=== PATIENT | male | born 1995 | race Caucasian/White ===

== ENCOUNTER 2016-08-09 08:36 | Emergency (ER) | payer SELFPAY ==
[~2016-08-09] VITALS: Ht 165.1 cm; Wt 81.6 kg
[~2016-08-09 08:36] MED LIST: HYDR-971 PO
[2016-08-09 08:49] VITALS: BP 114/66
--- NOTE | 2016-08-09 08:59 | PHYS DOC ---
General Chief Complaint: EYE PROBLEMS Stated Complaint: MULTIPLE COMPLAINTS Time Seen by MD: 08:37 Source: patient Exam Limitations: no limitations Problems: History of Present Illness Initial Comments Patient is a 20-year-old male with history of asthma who comes in the ED complaining of cough right ear pain pink eye. Patient states he has history of asthma he's had worsening of a nighttime cough for the past 2 weeks or so. He says the past few days this has been improving, his symptoms worsen with worsening of allergy symptoms but they to have been getting better the past few days. He uses an albuterol inhaler as needed and states he hasn't been using it much. He states for the past several days he has had scratchy sore throat described as mild to moderate, he's been eating and drinking well he feels the throat irritation is due to postnasal drip. He's had no fever chills sweats or myalgias, and for the past 2-3 days has had left eye redness and itching burning and greenish yellow discharge. Left eye is matted shut in the morning and today his right eye is starting itching and burning as well. He denies vision changes he does not work contact lenses he has no eye pain or foreign body sensation. He denies headache neck stiffness rash nausea vomiting diarrhea or other complaints. The patient continues to smoke cigarettes Timing/Duration: gradual, other Severity: moderate Location: eye (L), ear (R), mouth Prearrival Treatment: over the counter meds, prescription meds Modifying Factors: improves with other Associated Symptoms: cough, nasal congestion/drainage, sore throat, other Allergies: Coded Allergies: cephalexin (Verified Allergy, Intermediate, Rash, 08/09/16) Tolerates amoxicillin clindamycin (Verified Allergy, Unknown, 08/09/16) Past Medical History Medical History: allergies, asthma Surgical History: noncontributory Social History Smoker: cigarettes Alcohol: none Drugs: none Constitutional: denies chills, denies diaphoresis, denies fever, malaise Eyes: see HPI Ears: see HPI, denies dizziness, denies tinnitus, denies bloody discharge, denies clear discharge Nose: congestion, denies epistaxis, denies pain, denies bloody discharge, clear discharge Mouth: denies clots, denies loose teeth, denies pain Throat: pain, denies swelling, denies neck stiffness, denies hoarse, denies aphonia, painful swallowing, denies difficulty with fluids, denies previous injury Respiratory: see HPI Cardiovascular: denies chest pain, denies palpitations Gastrointestinal: denies diarrhea, denies nausea, denies vomiting Musculoskeletal: denies back pain, denies joint swelling, denies neck pain Neurological: denies headache, denies numbness, denies paresthesia Physical Exam General Appearance: WD/WN, no apparent distress Eyes: right eye normal inspection, left eye other (conjunctival injection, yellow disch), bilateral eye PERRL, bilateral eye EOMI Ears: right ear erythema, left ear TM normal, bilateral ear auricle normal, bilateral ear canal normal Nose: normal inspection Mouth/Throat: other (tonsils 2+ the right is erythematous with some exudate airway is patent) Neck: supple, trachea midline Cardiovascular/Respiratory: normal peripheral pulses, normal breath sounds, no respiratory distress Neurologic/Psychiatric: research scholar II-XII nml as tested, no motor/sensory deficits, alert, normal mood/affect, oriented x 3 Skin: normal color, warm/dry Departure Time of Disposition: 08:55 Disposition: 01 HOME, SELF-CARE Diagnosis: R otitis media, conjunctivitis, tobaccoism, asthma Condition: GOOD Patient Instructions: Bacterial Conjunctivitis, [id number], Otitis Media, Adult, [id number], Smoking Cessation, Tips For Success Additional Instructions: Stop smoking see medical assistance if necessary. Use your home albuterol inhaler: 2 puffs every 4 hours and as needed [id number] Tylenol, ibuprofen, Benadryl, and or analgesic throat sprays as needed. Prescription: Polytrim ophthalmic solution, amoxicillin Follow up with her doctor in 2-3 weeks for recheck. Return to the ED with new or changing symptoms CINDY WARE DO Aug 09, 2016 08:59
== END 2016-08-09 09:07 | disposition home or self-care (01) ==
LOC: ER 08:36
DX: H66.91 Otitis media, unspecified, right ear (principal); H10.9 Unspecified conjunctivitis; J45.909 Unspecified asthma, uncomplicated; F17.210 Nicotine dependence, cigarettes, uncomplicated; Z88.1 Allergy status to other antibiotic agents
CPT/HCPCS: 99283

== ENCOUNTER 2020-01-28 10:33 | Emergency (ER) | payer SELFPAY ==
[~2020-01-28] VITALS: Ht 167.6 cm; Wt 77.4 kg
[~2020-01-28 10:33] MED LIST changes: +HYDR-3165 PO; -HYDR-971 PO
[2020-01-28 10:43] VITALS: BP 114/72
[2020-01-28] MEDS ORDERED: LIDOCAINE 2% VISCOUS 15 ML SOLUTION. TOP ONE (11:00)
[2020-01-28] MEDS ORDERED: LIDOCAINE 2% VISCOUS 15 ML SOLUTION. SWSW ONE (11:00)
--- NOTE | 2020-01-28 11:15 | PHYS DOC ---
Past History Past Medical History: Asthma Past Surgical History: Other Additional Past Surgical Histo: CIRCUMCISION Smoking: Cigarettes Alcohol Use: Occasionally Drug Use: Marijuana General Adult EDM: Chief Complaint: EARACHE/EAR PAIN HPI: HPI: Patient is a 24-year-old male who woke up this morning with left ear pain. Patient has a little bit of dizziness associated with this. Patient feels like there may be a bug in his ear as he hears a buzzing sound. Patient denies any other specific traumas. Patient has not been vomiting or had any recent illnesses. Review of Systems: Review of Systems: Constitutional: Denies fever or chills Eyes: Denies change in visual acuity HENT: Denies nasal congestion or sore throat patient has left ear pain Respiratory: Denies cough or shortness of breath Cardiovascular: Denies chest pain or edema GI: Denies abdominal pain, nausea, vomiting, bloody stools or diarrhea : Denies dysuria Musculoskeletal: Denies back pain or joint pain Integument: Denies rash Neurologic: Denies headache, focal weakness or sensory changes patient does have some dizziness Endocrine: Denies polyuria or polydipsia Lymphatic: Denies swollen glands Psychiatric: Denies depression or anxiety Current Medications: Current Meds: Current Medications Medications (Trade) Dose Ordered Sig/Moe Start Time Stop Time Status Last Admin Dose Admin Lidocaine HCl (Viscous Lidocaine) 15 ml 1X ONCE 01/28/20 11:00 01/28/20 11:08 DC Allergies: Allergies: Allergies Coded Allergies Type Severity Reaction Last Updated Verified cephalexin Allergy Intermediate Rash 08/09/16 Yes clindamycin Allergy Unknown 08/09/16 Yes Physical Exam: PE: Constitutional: Well developed, well nourished, no acute distress, non-toxic appearance. [] HENT: Normocephalic, atraumatic, no trismus, left ear canal with a bug that is still alive present nose normal. [] Eyes: PERRLA, EOMI, conjunctiva normal, no discharge. [] Neck: Normal range of motion, no tenderness, supple, no stridor. [] Cardiovascular:Heart rate regular rhythm, peripheral pulses are intact cap refills less than 2 seconds Lungs & Thorax: Bilateral breath sounds clear, no respiratory distress Abdomen: soft, no tenderness, no masses, no pulsatile masses. [] Skin: Warm, dry, no erythema, no rash. [] Back: No tenderness, no CVA tenderness. [] Extremities: No tenderness, no cyanosis, no clubbing, ROM intact, no edema. [] Neurologic: Alert and oriented X 3, normal motor function, normal sensory function, no focal deficits noted. [] Psychologic: Affect normal, judgement normal, mood normal. [] Current Patient Data: Vital Signs: Vital Signs Date Time Temp Pulse Resp B/P (MAP) Pulse Ox O2 Delivery O2 Flow Rate FiO2 01/28/20 10:43 97.7 93 18 114/72 (86) 97 Room Air EKG: EKG: [] Radiology/Procedures: Radiology/Procedures: [] Heart Score: Risk Factors: Risk Factors: DM, Current or recent (<one month) smoker, HTN, HLP, family history of CAD, obesity. Risk Scores: Score 0 - 3: 2.5% MACE over next 6 weeks - Discharge Home Score 4 - 6: 20.3% MACE over next 6 weeks - Admit for Clinical Observation Score 7 - 10: 72.7% MACE over next 6 weeks - Early Invasive Strategies Course & Med Decision Making: Course & Med Decision Making Pertinent Labs and Imaging studies reviewed. (See chart for details) [] This is lidocaine was applied to the ear and then the ear was then irrigated with normal saline. A bug was retrieved. Patient was examined afterwards and has no complications from the procedure. Patient stable for discharge. Christina Disclaimer: Christina Disclaimer: This electronic medical record was generated, in whole or in part, using a voice recognition dictation system. Departure Departure: Impression: Primary Impression: Foreign body in left ear Disposition: 01 DC HOME SELF CARE/HOMELESS Condition: STABLE Referrals: PCP,NO (PCP) [facility] [address] [place] [address] [facility] [address] [place] [address] [facility] [address] Patient Instructions: Ear Foreign Body Additional Instructions: EMERGENCY DEPARTMENT GENERAL DISCHARGE INSTRUCTIONS THANK YOU for coming to [facility] Emergency Department (ED) today and trusting us with your care. We trust that you had a positive experience in our Emergency Department. If you wish to speak to the department Management you can contact the emergency department at YOUR FOLLOW UP INSTRUCTIONS ARE FOLLOWS: Do you have a private doctor? If you do not have a private doctor, please ask for a resource list of physicians or clinics that may be able to assist you with follow up care. The Emergency Physician has interpreted your x-rays. The X-ray specialist will also review them. If there is a change in the findings you will be notified in 48 hours when at all possible. A lab test or lab culture may have been done, your results will be reviewed and you will be notified if you need a change in treatment. ADDITIONAL INSTRUCTIONS AND INFORMATION Your care today has been supervised by a physician who is specially trained in emergency care. Many problems require more than one evaluation for a complete diagnosis and treatment. We recommend that you schedule your follow up appointment as recommended to ensure complete treatment of your illness or injury. If you are unable to obtain follow up care and continue to have a problem, or if your condition worsens we recommend that you return to the ED. We are not able to safely determine your condition over the phone nor are we able to give sound medical advice over the phone. For these safety reasons, if you call for medical advice we will ask you to come to the ED for further evaluation If you have any questions regarding these discharge instructions please call the ED at . SAFETY INFORMATION In the interest of safety, wellness, and injury prevention; we encourage you to wear your seatbelt, if you smoke; quit smoking, and we encourage your family to use protective helmet for bicycling and other sporting events that present an increased risk for head injury. IF YOUR SYMPTOMS WORSEN OR NEW SYMPTOMS DEVELOP, OR YOU HAVE CONCERNS ABOUT YOUR CONDITION; OR IF YOUR CONDITION WORSENS WHILE YOU ARE WAITING FOR YOUR FOLLOW UP APPOINTMENT; EITHER CONTACT YOUR PRIMARY CARE DOCTOR, THE PHYSICIAN WHOSE NAME AND NUMBER YOU WERE Anatoliy SILVERMAN, OR RETURN TO THE ED IMMEDIATELY. EL CHANEY MD Jan 28, 2020 11:15
== END 2020-01-28 11:20 | disposition home or self-care (01) ==
LOC: ER 10:33
DX: T16.2XXA Foreign body in left ear, initial encounter (principal); R42 Dizziness and giddiness; J45.909 Unspecified asthma, uncomplicated; F17.210 Nicotine dependence, cigarettes, uncomplicated; Z88.1 Allergy status to other antibiotic agents; X58.XXXA Exposure to other specified factors, initial encounter; Y93.89 Activity, other specified; Y92.89 Other specified places as the place of occurrence of the external cause; Y99.8 Other external cause status
CPT/HCPCS: 99284

== ENCOUNTER 2020-06-02 21:29 | Emergency (ER) | payer SELFPAY ==
[~2020-06-02] VITALS: Ht 167.6 cm; Wt 80.4 kg
[2020-06-02] MEDS ORDERED: IBUPROFEN 600 MG TABLET. PO ONE (22:15)
[2020-06-02] MEDS ORDERED: DEXAMETHASONE SOD PHOS 10 MG/ML VIAL. PO ONE (22:30)
--- NOTE | 2020-06-02 22:30 | PHYS DOC ---
Past History Past Medical History: Asthma, Other Additional Past Medical Histor: narcolepsy Past Surgical History: Other Additional Past Surgical Histo: CIRCUMCISION Smoking: Cigarettes Alcohol Use: Occasionally Drug Use: Marijuana General Adult EDM: Chief Complaint: SORE THROAT HPI: HPI: Patient is a 24-year-old male with cold symptoms starting this morning. Patient states he has a headache is resolved now, sore throat, postnasal drip, vertigo, slight nonproductive cough. No known sick contacts but patient is concerned about COVID-19. Did not get his flu vaccine this year. Is taken Tylenol with some improvement. Denies any fevers, neck stiffness, vomiting or diarrhea. No medical history. States he had a rash after taking Keflex as a child. Review of Systems: Review of Systems: All other systems within normal limits except for as noted in the HPI Current Medications: Current Meds: Current Medications Medications (Trade) Dose Ordered Sig/Moe Start Time Stop Time Status Last Admin Dose Admin Ibuprofen (Motrin) 600 mg 1X ONCE 06/02/20 22:15 06/02/20 22:17 DC Allergies: Allergies: Allergies Coded Allergies Type Severity Reaction Last Updated Verified cephalexin Allergy Intermediate Rash 08/09/16 Yes clindamycin Allergy Unknown 08/09/16 Yes Physical Exam: PE: Constitutional: Well developed, well nourished, no acute distress, non-toxic appearance. [] HENT: Normocephalic, atraumatic, bilateral external ears normal, nose normal. Erythema posterior pharynx with exudates, no tonsillar swelling, no uvular shift [] Eyes: PERRLA, conjunctiva normal, no discharge, extraocular intact, no nystagmus. [] Neck: No rigidity, supple, no stridor. [] Cardiovascular: Regular rate and rhythm, brisk cap refill [] Lungs & Thorax: Non labored symmetric respirations, no tachypnea or respiratory distress [] Abdomen: Soft, nondistended. Skin: Warm, dry, no erythema, no rash. [] Back: Unremarkable Extremities: No deformities, range of motion grossly intact, no lower extremity edema [] Neurologic: Alert and oriented X 3, no focal deficits noted. [] Psychologic: Affect normal, judgement normal, mood normal. [] Current Patient Data: Vital Signs: Vital Signs Date Time Temp Pulse Resp B/P (MAP) Pulse Ox O2 Delivery O2 Flow Rate FiO2 06/02/20 21:29 98.6 95 18 114/72 (86) 96 Room Air EKG: EKG: [] Radiology/Procedures: Radiology/Procedures: [] Heart Score: C/O Chest Pain: N/A Risk Factors: Risk Factors: DM, Current or recent (<one month) smoker, HTN, HLP, family history of CAD, obesity. Risk Scores: Score 0 - 3: 2.5% MACE over next 6 weeks - Discharge Home Score 4 - 6: 20.3% MACE over next 6 weeks - Admit for Clinical Observation Score 7 - 10: 72.7% MACE over next 6 weeks - Early Invasive Strategies Course & Med Decision Making: Course & Med Decision Making Pertinent Labs and Imaging studies reviewed. (See chart for details) [] Dragon Disclaimer: Dragon Disclaimer: This electronic medical record was generated, in whole or in part, using a voice recognition dictation system. Departure Departure: Impression: Primary Impression: Strep pharyngitis Disposition: 01 DC HOME SELF CARE/HOMELESS Condition: STABLE Additional Instructions: You have been tested for or diagnosed with COVID-19. It is an infection caused by a new type of coronavirus. COVID-19 will cause cold-like or mild flu symptoms in most. It can cause more severe symptoms like problems breathing in some. There is no treatment for COVID-19. The body will clear the infection over time. Self-care will help to ease discomfort. Steps to Take: Self-Care Rest as needed. Healthy habits may help you feel better. Steps include: Choose healthy foods including fruits and vegetables. Drink water throughout the day. Get plenty of sleep each night. If you smoke, try to quit. It may ease breathing. Avoid alcohol. Keep Others Healthy The virus can spread to others. Droplets are released every time you sneeze or cough. The droplets can get into the mouth, nose, or eyes of people near you and lead to in fection. To lower the chances of spreading COVID-19 to others: Stay at home until your doctor has said it is safe to leave. If you tested positive this will mean staying isolated until both of the following are true: At least 7 days have passed since the start of illness. You are free of fever for at least 72 hours without the use of medicine. During this time: - Avoid public areas, events, or transportation. Do not return to work or school until your doctor has said it is safe to do so. - Call ahead if you need to go to a medical center. Let them know you may have COVID-19. It will help them guide you where to go. They may also ask you to wear a facemask when you come to the office. - If you call for emergency medical services, let them know you may have COVID- 19. While at home: - Try to avoid close contact with others. Stay about 6 feet away. - If possible, spend most of your time in a separate room from others. - Use a face mask if you will be in close contact with others such as sharing a room or vehicle. - Have someone wipe down common surfaces in the home. Use household administrative staff supervisor every day on areas like doorknobs, counters, or sinks. - Cough or sneeze into a tissue. Throw the tissue away right after use. If a tissue is not available, cough or sneeze into your elbow. - Wash your hands often. Wash them after sneezing or coughing. Use soap and water and wash for at least 20 seconds. Alcohol based hand pigs feet cleaner can be used if soap and water is not available. - Do not prepare food for others. Avoid sharing personal items like forks, spoons, or toothbrushes. - Avoid close contact with pets while you are sick. There is no evidence of the virus passing to pets. This is a safety step until more is known about this virus. Isolation can be frustrating. Social interaction can help. Keep in touch with friends and family through phone and tech options. You can still interact with others in your home, just keep a safe distance of about 6 feet. Follow-up: Your doctors office will check in with you to see if there are any changes in your health. You may be asked to keep track of symptoms to share with them. They will also let you know when you are clear to be in public again. Problems to Look Out For: Contact your doctor if your recovery is not going as you expect. Get emergency care if you have problems such as: - Trouble breathing - Nonstop chest pain or pressure - Changes in awareness, confusion, or problems waking - Lips or face have bluish color - Worsening of symptoms If you think you have an emergency, call for emergency medical services right away. As taken from [facility] Ibuprofen (IBUPROFEN) 800 Mg Tablet 1 TAB PO TID for pain for 10 Days, #30 TAB 1 Refill Prov: TAMMIE RIVERA MD 06/02/20 Azithromycin (AZITHROMYCIN TABLET) 250 Mg Tablet 1 PKG PO UD for antibiotic for 5 Days, #6 TAB 0 Refills 2 the first day followed by 1 for days 2-5 Prov: TAMMIE RIVERA MD 06/02/20 TAMMIE RIVERA MD Jun 02, 2020 22:30
[2020-06-02] MEDS ORDERED: AZITHROMYCIN 250 MG TABLET. PO ONE (23:15)
[2020-06-02] MEDS ORDERED: IBUP800T19 PO (23:25)
[2020-06-02] MEDS ORDERED: AZIT250T6 PO (23:25)
[2020-06-02 23:41] LABS: INFLUENZA A PATIENT NEGATIVE (NEGATIVE); INFLUENZA B PATIENT NEGATIVE (NEGATIVE)
[2020-06-02 23:43] VITALS: BP 111/76
== END 2020-06-02 23:40 | disposition home or self-care (01) ==
LOC: ER 21:29
DX: J02.0 Streptococcal pharyngitis (principal); B95.0 Streptococcus, group A, as the cause of diseases classified elsewhere; Z20.822 Contact with and (suspected) exposure to COVID-19; J45.909 Unspecified asthma, uncomplicated; F17.210 Nicotine dependence, cigarettes, uncomplicated; Z88.1 Allergy status to other antibiotic agents
CPT/HCPCS: 87804; 87880; 99284; J1100; U0003